=== PATIENT | male | born 1935 | race Caucasian/White ===

== ENCOUNTER 2023-08-10 12:54 | Emergency (ER) | payer MEDICARE ==
[2023-08-10 13:05] VITALS: BP 153/58; O2SAT 94
--- NOTE | 2023-08-10 14:41 | ED Physician Documentation ---
History of Present Illness - Stated complaint Stated Complaint: LT ARM REDRESSED - Chief complaint Chief Complaint: Laceration - Additonal information Additional information: A 7-year-old male here for evaluation and redressing to the bandages of his left arm sustained after a ground-level fall on 30 July. He did have Steri- Strips placed over the wounds on his left arm. He reports that they have been healing very well but every time he changes the dressing he pulls off new skin and scab. His wanted him to have the wound reevaluated. Review of Systems Skin: reports: Lesions PD PAST MEDICAL HISTORY - Past Medical History Cardiovascular: Hypertension, High cholesterol Respiratory: None Endocrine/Autoimmune: None GI: None : None Psych: Depression Musculoskeletal: None Derm: None - Past Surgical History Past Surgical History: Yes Cardiovascular: Coronary stent - Present Medications Home Medications: Ambulatory Orders Medication Instructions Recorded Confirmed Amlodipine Besylate [Norvasc] 2.5 mg PO DAILY 06/17/23 06/17/23 Aspirin EC [Ecotrin] 81 mg PO DAILY 06/17/23 06/17/23 Atorvastatin [Lipitor] 20 mg PO DAILY 06/17/23 06/17/23 Clopidogrel Bisulfate [Plavix] 75 mg PO DAILY 06/17/23 06/17/23 Potassium Chloride [Klor-Con M10] 10 meq PO DAILY 06/17/23 06/17/23 Primidone 50 mg PO DAILY PM 06/17/23 06/17/23 Venlafaxine [Effexor] 25 mg PO BID 06/17/23 06/17/23 allopurinoL [Allopurinol] 200 mg PO DAILY 06/17/23 06/17/23 nadoloL [Corgard] 20 mg PO DAILY 06/17/23 06/17/23 traZODone [Desyrel] 100 mg PO HS 06/17/23 06/17/23 - Allergies Allergies/Adverse Reactions: Allergies Allergy/AdvReac Type Severity Reaction Status Date / Time niacin Allergy Headache Verified 08/10/23 12:57 - Social History Does the pt smoke?: No Smoking Status: Never smoker Does the pt have substance abuse?: No - POLST Patient has POLST: No PD ED PE EXPANDED - Extremities Extremities: Left arm (scabbing and steri strip left upper arm, dorsum with no surrounding erythema. serous drainage and blood on bandages) Results - Vitals Vitals: Vital Signs - 24 hr 08/10/23 12:57 Temperature 36.5 C Heart Rate 60 Respiratory 16 Rate Blood Pressure 153/58 H O2 Saturation 94 Oxygen O2 Source Room air PD Medical Decision Making - ED course Complexity details: d/w patient ED course: Healing skin tears on the dorsum of the left arm after ground-level fall on the 30 July. He has developed some scabbing over this region. Every time he changes the dressing it begins to rebleed. I advised the patient to use bacitracin or triple antibiotic ointment plus nonstick gauze which she is agreeable to clinically there is no secondary findings suggest infection of the wound. The usual emergent return precautions were discussed for worsening symptoms. Departure - Departure Disposition: 01 Home, Self Care Clinical Impression: Dressing change Condition: Stable Comments: The wounds on the top of her left arm appear to be healing well. In general however the scabs will tear if you are changing the bandage without antibiotic ointment. Place bacitracin or triple antibiotic ointment over the wounds twice daily and then a simple nonstick bandage. Because your skin is thinner and older I would expect it is going to take 1 to 2 weeks for these to heal. Return to the ER if you are having increased pain new symptoms or concerns of infection. Forms: PCP List
[2023-08-10] MEDS ORDERED: BACITRACIN ZINC OINT 1 PACKET TOP STA (14:44)
== END 2023-08-10 15:03 | disposition home or self-care (01) ==
LOC: ED 12:54
DX: S41.102D Unspecified open wound of left upper arm, subsequent encounter (principal); Z48.00 Encounter for change or removal of nonsurgical wound dressing
CPT/HCPCS: 99282; A9270